=== PATIENT | female | born 1955 | race Caucasian/White ===

== ENCOUNTER 2025-06-16 08:46 | Observation (INO) ==
--- NOTE | 2025-05-17 09:51 | PAT Medication Instructions ---
Medication Instructions Date of Service May 17, 2025 Home Medications Medication Instructions Recorded levalbuterol HCl 0.63 mg/3 mL 0.63 mg (3 mL) inhalation TID PRN 11/10/22 solution for nebulization shortness of breath or wheezing #90 mL albuterol sulfate 90 mcg/actuation 2 puff inhalation PRN wheezing #3 08/02/24 aerosol inhaler (Ventolin HFA) Inhalers budesonide-formoterol HFA 160 1 inh inhalation BID #3 Inhalers 08/02/24 mcg-4.5 mcg/actuation aerosol inhaler dupilumab 300 mg/2 mL subcutaneous See Rx Instructions .Route 02/20/25 syringe (Dupixent) .COMPLEX #4 mL epinephrine 0.3 mg/0.3 mL injection, auto-injector 0.3 mg IM UD PRN Anaphylaxis furosemide 20 mg tablet 20 mg PO QAM melatonin 3 mg capsule 3 mg PO DAILY PRN Sleep mometasone 50 mcg/actuation nasal spray (Nasonex) 2 sprays intranasal BID levalbuterol HCl 0.63 mg/3 mL solution for nebulization 0.63 mg (3 mL) inhalation TID PRN shortness of breath or wheezing albuterol sulfate 90 mcg/actuation aerosol inhaler (Ventolin HFA) 2 puff inhalation PRN wheezing budesonide-formoterol HFA 160 mcg-4.5 mcg/actuation aerosol inhaler 1 inh inhalation BID dupilumab 300 mg/2 mL subcutaneous syringe (Dupixent) See Rx Instructions .Route .COMPLEX acetaminophen 650 mg tablet,extended release 650 mg PO Q8H PRN Pain ibuprofen 200 mg capsule 800 mg PO Q6H PRN Pain indomethacin 50 mg capsule 50 mg PO BID PRN Pain levothyroxine 75 mcg tablet 75 mcg PO QAM omeprazole 20 mg capsule,delayed release 20 mg PO UD PRN GERD potassium chloride 20 mEq tablet,extended release 20 meq PO QAM theophylline 300 mg tablet,extended release,12 hr 300 mg PO BID Continue as directed epinephrine 0.3 mg/0.3 mL injection, auto-injector 0.3 mg IM UD PRN Anaphylaxis (if needed) ASK your surgeon for instructions ibuprofen 200 mg capsule 800 mg PO Q6H PRN Pain indomethacin 50 mg capsule 50 mg PO BID PRN Pain ASK your prescriber and surgeon dupilumab 300 mg/2 mL subcutaneous syringe (Dupixent) See Rx Instructions .Route .COMPLEX Do NOT take day before surgery or morning of surgery theophylline 300 mg tablet,extended release,12 hr 300 mg PO BID DO NOT take the morning of surgery furosemide 20 mg tablet 20 mg PO QAM potassium chloride 20 mEq tablet,extended release 20 meq PO QAM Take morning of surgery With a small sip of water, OTHERWISE NOTHING TO EAT OR DRINK AFTER MIDNIGHT: mometasone 50 mcg/actuation nasal spray (Nasonex) 2 sprays intranasal BID levalbuterol HCl 0.63 mg/3 mL solution for nebulization 0.63 mg (3 mL) inhalation TID PRN shortness of breath or wheezing (if needed) albuterol sulfate 90 mcg/actuation aerosol inhaler (Ventolin HFA) 2 puff inhalation PRN wheezing (use if needed; please bring rescue inhaler with you to hospital day of surgery if possible) budesonide-formoterol HFA 160 mcg-4.5 mcg/actuation aerosol inhaler 1 inh inhalation BID acetaminophen 650 mg tablet,extended release 650 mg PO Q8H PRN Pain (if needed) levothyroxine 75 mcg tablet 75 mcg PO QAM omeprazole 20 mg capsule,delayed release 20 mg PO UD PRN GERD (if needed) Take evening before surgery melatonin 3 mg capsule 3 mg PO DAILY PRN Sleep (if needed) mometasone 50 mcg/actuation nasal spray (Nasonex) 2 sprays intranasal BID levalbuterol HCl 0.63 mg/3 mL solution for nebulization 0.63 mg (3 mL) inhalation TID PRN shortness of breath or wheezing (if needed) albuterol sulfate 90 mcg/actuation aerosol inhaler (Ventolin HFA) 2 puff inhalation PRN wheezing (if needed) budesonide-formoterol HFA 160 mcg-4.5 mcg/actuation aerosol inhaler 1 inh inhalation BID acetaminophen 650 mg tablet,extended release 650 mg PO Q8H PRN Pain (if needed) omeprazole 20 mg capsule,delayed release 20 mg PO UD PRN GERD (if needed) Other Notes If you have any questions please call us at [phone] or [phone] or [phone] or [phone]
--- NOTE | 2025-05-24 12:04 | Anesthesiology Consultation ---
Date of Service May 24, 2025 Assessment & Plan (1) Encounter for pre-operative examination: - Case discussed in detail with Dr. Jacobsen who advised patient is acceptable both to proceed in general with surgery and as outpatient joint candidate noting she may be a candidate for TIVA given h/o significant post-op nausea and vomiting. - Outpatient joint pathway: Per surgeon and patient, plan for outpatient joint program. Per discussion with Dr. Jacobsen, patient is an acceptable candidate for Same Day Joint Program from anesthesia perspective pending perioperative course. Pending patient is motivated, has good support and surgeon's office completes Same Day Joint Program preop requirements-patient may proceed with outpatient TSA. PAT testing to be faxed to [facility] PCP, Dr. Leatha Valadez for continuity of care. Chart Review Chart Review: Acceptable Risk for Surgery and Patient seen in Pre Admission Testing Teaching & Discussion Pre-Anesthesia Teaching/Discussion Notes: Instructed NPO after midnight before surgery, except medications with 15 cc of water. Medication instructions provided according to the PAT guidelines. History Surgery Operation Date: 06/16/25 12:00 Proposed Procedures p OP: Right Anatomic Total Shoulder Arthroplasty VS Right Reverse Total Shoulder Arthroplasty - Yazan Erickson, Height/Weight Height: 4 ft 10 in Weight: 66.1 kg Allergies Allergy/AdvReac Type Severity Reaction Status Date / Time No Known Allergies Allergy Verified 05/17/25 08:07 Medications Home Medications Medication Instructions Recorded Confirmed Last Taken Oxygen Home #1 ea 05/25/19 08/02/24 Unknown epinephrine 0.3 mg/0.3 mL 0.3 mg IM UD PRN Anaphylaxis #1 ea 05/25/19 05/17/25 Unknown injection, auto-injector furosemide 20 mg tablet 20 mg PO QAM 05/25/19 05/17/25 Unknown melatonin 3 mg capsule 3 mg PO DAILY PRN Sleep 05/25/19 05/17/25 Unknown mometasone 50 mcg/actuation nasal 2 sprays intranasal BID 05/25/19 05/17/25 Unknown spray (Nasonex) levalbuterol HCl 0.63 mg/3 mL 0.63 mg (3 mL) inhalation TID PRN 11/10/22 05/17/25 Unknown solution for nebulization shortness of breath or wheezing #90 mL albuterol sulfate 90 mcg/actuation 2 puff inhalation PRN wheezing #3 08/02/24 05/17/25 Unknown aerosol inhaler (Ventolin HFA) Inhalers budesonide-formoterol HFA 160 1 inh inhalation BID #3 Inhalers 08/02/24 05/17/25 Unknown mcg-4.5 mcg/actuation aerosol inhaler dupilumab 300 mg/2 mL subcutaneous See Rx Instructions .Route 02/20/25 05/17/25 Unknown syringe (Dupixent) .COMPLEX #4 mL acetaminophen 650 mg 650 mg PO Q8H PRN Pain 05/17/25 05/17/25 Unknown tablet,extended release ibuprofen 200 mg capsule 800 mg PO Q6H PRN Pain 05/17/25 05/17/25 Unknown indomethacin 50 mg capsule 50 mg PO BID PRN Pain 05/17/25 05/17/25 Unknown levothyroxine 75 mcg tablet 75 mcg PO QAM 05/17/25 05/17/25 Unknown omeprazole 20 mg capsule,delayed 20 mg PO UD PRN GERD 05/17/25 05/17/25 Unknown release potassium chloride 20 mEq 20 meq PO QAM 05/17/25 05/17/25 Unknown tablet,extended release theophylline 300 mg 300 mg PO BID 05/17/25 05/17/25 Unknown tablet,extended release,12 hr Past Medical History Medical History (Updated 05/24/25 @ 12:17 by Lakeisha Yi PA-C) Allergic rhinitis Eosinophilic asthma Hx of gastroesophageal reflux (GERD) controlled, stable per pt Hypothyroidism Nausea and vomiting after administration of anesthetic agent On home oxygen therapy 2L via n/c at night Osteoarthritis of right glenohumeral joint Severe persistent asthma well-controlled per pt. Patient denies h/o stroke, seizures, heart attack, heart failure, DM, HTN, blood clots/DVTs or blood transfusions. Exercise / Class Metabolic Activity II 4-5 Yardwork/Stairs/Walk up hill (denies chest discomfort or shortness of breath with one flight of stairs) Past Surgical History Surgical History History of bilateral tubal ligation (1977) History of esophagogastroduodenoscopy (EGD) History of lumpectomy of right breast (1994) benign History of total replacement of left shoulder joint ~2019 or 2019 Hx of appendectomy age 14 Hx of bilateral cataract extraction Hx of colonoscopy (2015) Hx of tonsillectomy age 5 Past Anesthesia History No Hx of Anesthesia Complications and Other (grandmother with post-op nausea and vomiting) History of PONV No Hx of Motion Sickness and History of PONV Social History Smoking Status: Never smoker Do You Dip or Chew Tobacco: No Hx Alcohol Use: Yes Alcohol type: beer and wine Alcohol Intake Frequency Comment: 1-2x/week Hx Substance Use: No substance use type: does not use Review of Systems Patient denies chest pain, shortness of breath, dyspnea on exertion, snoring, witnessed apneas, fever, chills, cough, wheezing, or palpitations. Physical Exam Vital Signs Vitals BP 111/71 P 50 TEMP 98.1 SP02 95% on RA RESP 18 Physical Patient resting comfortably in chair in no acute distress, alert and oriented, responding appropriately throughout visit Full cervical extension range of motion without pain TMD 3.5 finger breadths Mallampati Score 2 Dentition: full upper dentures and lower chipped teeth, denies loose teeth, caps/crowns, implants or bridges Lungs: normal respiratory effort. Good air movement, clear throughout to auscultation, no adventitious breath sounds Cardiac: regular rate and rhythm, no murmurs noted Carotid arteries: negative bruit bilat Lab Results Anesthesia Preop Results Results Anesthesia Widget: WBC 5.55 K/ul (4.8-10.8) 05/24/25 Hgb 12.8 g/dl (12.0-16.0) 05/24/25 Hct 36.8 % (37.0-47.0) L 05/24/25 Plt 232 K/uL (130-400) 05/24/25 Na 139 mmol/L (136-145) 05/24/25 K 3.8 mmol/L (3.5-5.1) 05/24/25 Cl 104 mmol/L (98-107) 05/24/25 CO2 26 mmol/L (21-32) 05/24/25 BUN 19 mg/dl (6-23) 05/24/25 Creat 0.84 mg/dl (0.6-1.2) 05/24/25 Glucose Level 102 mg/dl (70-99(Fasting)) H 05/24/25 PT 10.8 Seconds (9.0-12.0) 05/24/25 PTT 27 Seconds (21-31) 05/24/25 INR 1.0 (0.9-1.1) 05/24/25 Blood Type O Positive 05/24/25 Antibody Screen NEGATIVE 05/24/25 Testing Electrocardiogram Date: 05/24/25 Sinus tachycardia with occasional PACs, rate 104 bpm Low voltage QRS Cannot rule out anterior infarct, age undetermined Chest X-Ray Date: 05/24/25 Heart size and pulmonary vasculature are normal. Lungs are hyperexpanded. No consolidation or pleural effusion. IMPRESSION: No acute findings. Echocardiogram Date: 04/08/22 LVEF 55-59% Normal LV wall motion Grade I diastolic dysfunction Trace mitral regurgitation
[~2025-06-16 08:46] MED LIST: BUPIVACAINE 0.5 % 5 MG/1 ML PF 10ML VIAL ONE
[2025-06-16] MEDS: LR 60ML/HR IV SCH (09:29)
[2025-06-16] MEDS: LR 15ML/HR IV SCH (09:29)
[2025-06-16] MEDS: ACETAMINOPHEN 500 MG TAB PO SCH ×2 (09:30→22:18)
[2025-06-16] MEDS: dexAMETHasone**PF** 10 MG/ML VIAL IV SCH (09:31)
[2025-06-16] MEDS: GABAPENTIN 300 MG CAP PO SCH (09:31)
[2025-06-16] MEDS: FAMOTIDINE 20 MG TAB PO SCH (09:31)
[2025-06-16] MEDS: SCOPOLAMINE 1 MG/72 HR TDSY PATCH TD SCH (10:02)
[2025-06-16] MEDS: SCOPOLAMINE 1 MG/72 HR TDSY PATCH TD ONE (10:02)
[2025-06-16] MEDS ORDERED: PROPOFOL IV EMULSION 10 MG/ML 20 ML VIAL IV ONE (10:06)
[2025-06-16] MEDS ORDERED: ROCURONIUM BROMIDE 10 MG/ML 5 ML VIAL IV ONE (10:06)
[2025-06-16] MEDS ORDERED: ONDANSETRON INJ 2 MG/ML 2 ML VIAL ONE (10:07)
[2025-06-16] MEDS ORDERED: DEXAMETHASONE SOD INJ 4 MG/ML VIAL ONE (10:07)
[2025-06-16] MEDS ORDERED: LIDOCAINE 2% 2 ML VIAL/AMP(20MG/ML) INFIL ONE ×2 (10:07)
[2025-06-16] MEDS ORDERED: MIDAZOLAM HCL 1 MG/ML 2ML VIAL ONE (10:10)
--- NOTE | 2025-06-16 10:23 | History & Physical Bridge Note ---
Date of Service June 16, 2025 History & Physical Bridge Note I have examined the patient, reviewed the History & Physical and in the interval since the performance of the History & Physical I have noted the following changes of clinical significance: no changes noted
[2025-06-16] MEDS: TRANEXAMIC ACID 1,000 MG **IV Pre-op IV SCH (11:10)
[2025-06-16] MEDS ORDERED: PROMETHAZINE HCL 6.25 MG in SODIUM CHLORIDE 0.9% 50 ML IV PRN (11:32)
[2025-06-16] MEDS ORDERED: ATROPINE SULFATE 0.1 MG/ML 10ML SYR IV PRN (11:32)
[2025-06-16] MEDS: ORTHO JOINT ANESTHETIC ONE (12:01)
[2025-06-16] MEDS: ROPIV 0.5% 246mg, Ketorolac 30mg, EPINEPHrine 0.5mg in NSS INFIL SCH (12:10)
--- NOTE | 2025-06-16 12:22 | Operative Report ---
PG Post Operative Report Pre & Post Diagnosis Operation Date: 06/16/25 11:00 Pre-Op Diagnosis: Right Shoulder Arthritis with tendinopathy long head biceps tendon Post-Op Diagnosis: Right Shoulder Arthritis with tendinopathy long head of the biceps tendon I identified the patient and participated in the time-out.: Yes Procedure Operation Date: 06/16/25 11:00 Actual Procedures p OP: Right Anatomic Total Shoulder Arthroplasty(Right) with open biceps tenodesis as a distinct and separate procedure (modifier 59)- Yazan Erickson DO Surgeon Yazan Erickson DO [employer] Carlton Gordillo PA-C Estimated Blood Loss 150 Findings Consistent with Post-Op Diagnosis Specimens Right humeral head Description of Procedure A CPT code modifier 59: The long head of the biceps tendon was enlarged and inflamed consistent with tendinopathy. A tenodesis was opted. This was a separate and distinct portion of the procedure. For these reasons, a CPT code modifier 59 will be added to this case. Implants used: I used a [employer] Comprehensive total shoulder arthroplasty system with a size 12 press fit micro humeral stem, a size 42 x 18 eccentric humeral head, and a size 2 glenoid with a trabecular metal peg. The glenoid was cemented in place with Palacos G cement. Nilam arrived at [facility] for the above procedure. She was seen in the preoperative holding area and the operative extremity was identified and signed. She was given a preoperative antibiotic, TXA, and an interscalene nerve block. She was taken back to the operating room, laid on table in supine position, and put under general anesthesia. She was then put into the beachchair position. The shoulder was then prepped and draped in sterile fashion. A timeout was done and the patient and the operative extremity was properly identified. A deltopectoral approach was used. Dissection was taken down through the fascia and the deltoid was retracted laterally and the conjoined tendon was retracted medially. The anterior shoulder was exposed. The biceps groove was opened up and the biceps tendon was examined extensively. The biceps tendon demonstrated enlargement and inflammatory changes consistent with longstanding inflammation in the context of osteoarthritis. The long head of the biceps tendon was then tenodesed to the upper border of the pectoralis major. This was a separate and distinct portion of the procedure. The subscapularis was then released off the lesser tuberosity with a centimeter of cuff tissue remaining. The inferior capsule was released and the humeral head was dislocated. The rotator cuff was inspected and intact. A canal finding reamer was sent down the center of the humeral canal. Sequential reaming up to a size 12 reamer was done. Offset reamer a proximal humeral resection guide was placed. The proximal humerus was resected at 135 of inclination and 30 of retroversion. Inferior osteophytes were then removed and the glenoid was exposed. Time was spent doing an appropriate labral release. The glenoid measured to be a size 2. A 3.2 mm Steinmann pin was placed in the central hole of the glenoid vault pin guide. The glenoid was then reamed with a propeller reamer. The central post cutter was then used to prepare for the central boss. The cannulated peripheral peg drill guide was then placed and 3 peg holes were drilled. The final size 2 glenoid was then cemented in place with Palacos G cement. Surrounding soft tissues were then injected with 100 cc of an orthopedic pain control cocktail. Once cement had dried the proximal humerus was once again exposed. Sequential broaching of the humerus up to a size 12 broach was done. Off that broach a size 42 x 18 eccentric humeral head was trialed. The shoulder was then reduced, brought through a full range of motion, and felt to be stable. The shoulder was then dislocated and the broach was removed. The final size 12 micro humeral stem implant was then impacted into place. A size 42 x 18 eccentric humeral head was then impacted onto the humeral stem. The shoulder was then reduced and once again brought through a full range of motion and felt to be stable. The subscapularis was then tenodesed back to the lesser tuberosity with transosseous FiberWire sutures and side to side sutures with the arm in 45 of external rotation. 2 sutures were placed in the lateral rotator interval. A dilute betadyne lavage was then done for 3 minutes. The joint was then irrigated with normal saline solution. Hemostasis was obtained. The interval was closed with 2-0 Vicryl suture. The skin was closed with 2-0 Vicryl and Jeremi Zipline. A Silverlon dressing was placed and the arm was rested in a regular arm sling. She was then extubated and transferred to a hospital bed. She was taken to the postanesthesia care unit in stable condition. She tolerated the procedure well. Carlton Gordillo PA-C, was present for the entire procedure. He was critical for patient positioning, prepping, draping, retraction exposure, wound closure and application of sterile dressing. I attest to the content of the Intraoperative Record and any orders documented therein. Any exceptions are noted below.
[2025-06-16] MEDS: ONDANSETRON INJ 2 MG/ML 2 ML VIAL IV PRN ×2 (12:55→18:22)
--- NOTE | 2025-06-16 13:51 | XRay Report ---
XR shoulder RT min 2V routine CLINICAL HISTORY: Post shoulder surgery COMPARISON: None FINDINGS: Right shoulder prosthesis shows no hardware complication. There is expected soft tissue ga s. IMPRESSION: Unremarkable postoperative exam. ACT 112: Negative or not required by law. Electronically signed by: Estuardo Thompson M.D. 06/16/2025 1:50 PM
--- NOTE | 2025-06-16 14:42 | Anesthesiology Progress Note ---
Date of Service June 16, 2025 Anesthesia Post Procedure Vital Signs Vital Signs: Temp Pulse Resp BP Pulse Ox O2 Del Method O2 Flow Rate 06/16/25 14:20 36.5 C 83 18 104/61 93 Nasal Cannula 2 06/16/25 13:50 36.5 C 87 18 103/59 L 93 Nasal Cannula 2 06/16/25 13:35 81 17 110/61 95 Nasal Cannula 2 06/16/25 13:25 36.2 C L 78 18 114/58 L 94 Nasal Cannula 2 06/16/25 13:15 91 H 18 138/79 94 Nasal Cannula 2 06/16/25 13:05 80 18 118/68 95 Oxymask 8 06/16/25 12:55 79 18 130/68 95 Oxymask 8 06/16/25 12:46 36.0 C L 91 H 18 120/59 L 97 Oxymask 8 06/16/25 09:12 36.8 C 72 18 129/101 H 95 Room Air Pain Intensity Right Shoulder: Pain Intensity: 7 Transfer of Care Handoff Completed per policy Notes Mental Status: alert / awake / arousable Patient Amnestic to Procedure: Yes Nausea / Vomiting: adequately controlled Pain: adequately controlled Airway Patency, RR, SpO2: stable & adequate BP & HR: stable & adequate Hydration State: stable & adequate Anesthetic Complications: no major complications apparent
[2025-06-16] MEDS: ACETAMINOPHEN 1,000 MG/100 ML VIAL IV STA (15:36)
[2025-06-16] MEDS: KETOROLAC TROMETHAMINE 15 MG/ML VIAL IV ONE (15:36)
[2025-06-16] MEDS ORDERED: METOCLOPRAMIDE HCL INJ 5 MG/ML 2 ML VIAL IV PRN (17:56)
[2025-06-16] MEDS ORDERED: HYDROmorphone INJ 0.5 MG/0.5 ML SYR IV PRN (17:56)
[2025-06-16] MEDS ORDERED: NALOXONE HCL 0.4 MG/1 ML VIAL/CARP IV PRN (17:56)
[2025-06-16] MEDS ORDERED: MAGNESIUM HYDROXIDE SUSP 30 ML UDC PO PRN (17:56)
[2025-06-16] MEDS ORDERED: MELATONIN 3 MG TAB PO PRN (18:05)
[2025-06-16] MEDS: BUPIVACAINE LIPOSOME 1.3% 133 MG/10 ML VIAL ONE (18:11)
[2025-06-16] MEDS: CHECK SCOPOLAMINE PATCH PLACEMENT SCH (18:15)
[2025-06-16] MEDS: SODIUM CHLORIDE 0.9% 1,000 ML IV SCH (18:21)
[2025-06-16 19:07] VITALS: RESP 16
[2025-06-16] MEDS: SENNA 8.6 MG TAB PO SCH (20:25)
[2025-06-16] MEDS: THEOPHYLLINE 300MG EXTENDED REL TAB PO SCH (20:26)
[2025-06-16] MEDS: DOCUSATE SODIUM 100 MG CAP PO SCH (20:26)
[2025-06-16] MEDS: KETOROLAC TROMETHAMINE 15 MG/ML VIAL IV SCH (22:18)
[2025-06-17] MEDS: LEVOTHYROXINE SODIUM 75 MCG TABLET PO SCH (05:40)
[2025-06-17 07:35] VITALS: BP 102/64; PULSE 70; TEMP 98.1
--- NOTE | 2025-06-17 07:40 | Orthopedic Progress Note ---
Date of Service June 17, 2025 Assessment & Plan (1) Status post replacement of right shoulder joint: Overall she is doing very well. She is not having much pain in the right shoulder. The nausea has subsided. She will be seen by physical therapy today for ambulation and range of motion exercises. She can be discharged to home today. She will follow-up orthopedics in 2 weeks. Subjective Nilam was seen and examined at bedside this morning. Overall she is doing much better. She was kept overnight in the hospital due to postoperative nausea. The nausea has subsided and she has no complaints.. Review of Systems All systems reviewed & are unremarkable except as noted in HPI & below. Physical Exam On physical exam of the right shoulder, the nerve block is still in effect. She is wearing a sling as instructed. The dressing is clean and dry.. Results & Data Results & Data Laboratory Results . Diagnostic Findings Postoperative x-rays of the right shoulder show the prosthesis to be in anatomic alignment without any evidence of fracture, dislocation, or loosening.. PG Care Time/CCT Total # of Minutes Spent Total Time Spent with Patient: Total time spent is greater than 50% in coordination of care (as documented) at patient's floor/unit and/or counseling patient: Coding Level of Care Code 10788 Post Operative Follow-Up Diagnoses Status post replacement of right shoulder joint Z96.611
[2025-06-17] MEDS: FLUTICASONE PROPIONATE NA SPR 16 GM BTL SCH (10:19)
[2025-06-17] MEDS: FLUTICASONE/VILANTEROL 200/25MCG 14 PUFFS/INHALER INH SCH (10:19)
[2025-06-17] MEDS: FUROSEMIDE 20 MG TAB PO SCH (10:20)
[2025-06-17] MEDS: MULTIVITAMIN TAB PO SCH (10:20)
--- NOTE | 2025-06-17 10:21 | Hospitalist Consultation ---
Date of Consultation June 17, 2025 Assessment & Plan (1) Status post replacement of right shoulder joint: (2) Severe persistent asthma: (3) Hypothyroidism: Supervising Physician Co-Signing Physician Notes The patient was not seen by me. She was discharged from the hospital and left before I could see her. The chart was reviewed. Case discussed with FRANCISCO JAVIER Olivarez. Agree with assessment and plan History of Present Illness Attending Physician: Yazan Erickson, DO History of Present Illness This is a 69 year old female with past medical history of severe persistent asthma, OA of glenohumeral joint who presented to the hospital on 06/16/2025 for an elective shoulder surgery with Dr. Erickson. Nilam was seen & examined this morning. Apparently after surgery yesterday, per nursing the patients O2 was dropping below 80. This morning with PT, patient was walking & doing well & O2 dropped below 80 again. I discussed these O2 saturations with patient and she informed me that this is typical for her. She states she has oxygen at home she uses at night & does have another oxygen tank to use prn during the day. She states that with certain activities such as sweeping the floor, she becomes SOB. When this happens, she states that she takes a break & uses oxygen and then is fine. She reports she feels at baseline. She endorsed no CP or SOB at time of my encounter and was looking forward to being discharged this morning. Allergies Allergy/AdvReac Type Severity Reaction Status Date / Time No Known Allergies Allergy Verified 06/16/25 09:09 Home Medications Medication Instructions Recorded Confirmed Type Oxygen Home #1 ea 05/25/19 06/01/25 History epinephrine 0.3 mg/0.3 mL 0.3 mg IM UD PRN Anaphylaxis #1 ea 05/25/19 06/16/25 History injection, auto-injector furosemide 20 mg tablet (Lasix) 20 mg PO QAM 05/25/19 06/16/25 History melatonin 3 mg capsule 3 mg PO DAILY PRN Sleep 05/25/19 06/16/25 History mometasone 50 mcg/actuation nasal 2 sprays intranasal BID 05/25/19 06/16/25 History spray (Nasonex) levalbuterol HCl 0.63 mg/3 mL 0.63 mg (3 mL) inhalation TID PRN 11/10/22 06/16/25 Rx solution for nebulization shortness of breath or wheezing #90 mL dupilumab 300 mg/2 mL subcutaneous See Rx Instructions .Route 02/20/25 06/16/25 Rx syringe (Dupixent) .COMPLEX #4 mL acetaminophen 650 mg 650 mg PO Q8H PRN Pain 05/17/25 06/16/25 History tablet,extended release ibuprofen 200 mg capsule 800 mg PO Q6H PRN Pain 05/17/25 06/16/25 History indomethacin 50 mg capsule 50 mg PO BID PRN Pain 05/17/25 06/16/25 History levothyroxine 75 mcg tablet 75 mcg PO QAM 05/17/25 06/16/25 History omeprazole 20 mg capsule,delayed 20 mg PO UD PRN GERD 05/17/25 06/16/25 History release potassium chloride 20 mEq 20 meq PO QAM 05/17/25 06/16/25 History tablet,extended release theophylline 300 mg 300 mg PO BID 05/17/25 06/16/25 History tablet,extended release,12 hr albuterol sulfate 90 mcg/actuation 2 puff inhalation .COMPLEX 06/01/25 06/16/25 Rx aerosol inhaler (Ventolin HFA) wheezing #3 Inhalers cefadroxil 500 mg capsule 500 mg PO BID 10 days #20 caps 06/15/25 06/16/25 Rx oxycodone 5 mg tablet 5 mg PO Q4H PRN pain #18 tabs 06/15/25 06/16/25 Rx budesonide-formoterol HFA 160 2 puff inhalation BID 06/16/25 06/16/25 History mcg-4.5 mcg/actuation aerosol inhaler (Symbicort) Patient History Medical History Nausea and vomiting after administration of anesthetic agent Hx of gastroesophageal reflux (GERD) controlled, stable per pt Hypothyroidism Eosinophilic asthma On home oxygen therapy 2L via n/c at night Osteoarthritis of right glenohumeral joint Allergic rhinitis Severe persistent asthma well-controlled per pt. Surgical History History of bilateral tubal ligation (1977) History of total replacement of left shoulder joint ~2018 or 2019 History of esophagogastroduodenoscopy (EGD) Hx of colonoscopy (2014) Hx of appendectomy age 14 History of lumpectomy of right breast (1994) benign Hx of tonsillectomy age 5 Hx of bilateral cataract extraction Social History Smoking Status: Never smoker Second Hand Exposure: Yes (hx growing up); Do You Dip or Chew Tobacco: No; Hx Alcohol Use: Yes Alcohol type: beer and wine Hx Substance Use: No Preferred Language: Pashto Communication Ability: Effective Coater Helper Required: No Beliefs That Will Affect Care: None Current Living Situation: Spouse Feels Safe at Home: Yes Assistive Devices: Hearing Aid - Bilateral and Oxygen - at Night Physical Exam Physical Exam: General: NAD, VS: BP 102/64; P70; R16; T36.7C Resp: normal respiratory effort, lungs clear to auscultation CV: RRR, no murmur Extremities: Moves all extremities, no edema Neuro: A&O x3, Skin: intact, no lesions noted Results & Data Results & Data Vital Signs (Past 12 Hours) Vital Signs Temp Pulse Resp BP Pulse Ox O2 Del Method O2 Flow Rate 06/17/25 09:46 Room Air, Nasal Cannula 2 06/17/25 07:34 36.7 C 70 16 102/64 96 Room Air 06/17/25 03:28 36.4 C L 64 16 95/58 L 97 Nasal Cannula 2 06/16/25 23:44 36.4 C L 57 L 16 99/59 L 94 Nasal Cannula 2 PG Care Time/CCT Total # of Minutes Spent Total Time Spent with Patient: Total time spent is greater than 50% in coordination of care (as documented) at patient's floor/unit and/or counseling patient: Prolonged Care Time This is a 69 year old female with past medical history of severe persistent asthma, OA of glenohumeral joint who presented to the hospital on 06/16/2025 for an elective shoulder surgery with Dr. Erickson. #s/p right anatomic total shoulder arthroplasty performed by Dr. Erickson 06/16 DVT prophylaxis, pain management, PT/OT consults, & diet per primary team #Severe persistent asthma per pt at baseline continue home therapy follow up with allergy outpatient as scheduled. #Hypothyroidism Continue levothyroxine No recent TSH in our system, follow up with PCP for continued care. At this time, patient is stable for discharge from a hospitalist standpoint, please call us with questions or concerns. Coding Level of Care Code 85046 IN/OBS CONSULT LVL 3,45M Diagnoses Status post replacement of right shoulder joint Z96.611 Severe persistent asthma J45.50 Hypothyroidism E03.9
[2025-06-17 13:17] VITALS: O2SAT 93
[2025-06-19] MEDS ORDERED: REMOVE TRANSDERM-SCOP PATCH SCH (10:00)
== END 2025-06-17 10:52 | disposition home or self-care (01) ==
LOC: 3E 08:46 → ASU 08:46